=== PATIENT | male | born 1950 | race Caucasian/White ===

== ENCOUNTER 2021-03-18 08:43 | Outpatient (CLI) | payer MEDICARE, BC | END 2021-03-18 08:44 | disposition home or self-care (01) | LOC: MRI 08:43 | PROVIDERS: ATTEND Internal Medicine Endocrinology, Diabetes & Metabolism | DX: L89.899 Pressure ulcer of other site, unspecified stage (principal); Z86.31 Personal history of diabetic foot ulcer; E11.40 Type 2 diabetes mellitus with diabetic neuropathy, unspecified ==

== ENCOUNTER 2021-05-02 13:32 | Inpatient (IN) | payer BC, MEDICARE ==
[2021-05-02 14:42] LABS: Hemoglobin 18.5 g/dL (14.0-18.0); Mean Corpuscular HGB CONC 35.3 g/dL (32.0-36.0); Mean Corpuscular Hemoglobin 32.4 pg (27.0-31.0); Mean Corpuscular Volume 91.8 fL (78.0-98.0); Mean Platelet Volume 7.7 fL (7.4-10.4); Platelet Count 264 thou/uL (130-400); RBC Distribution Width 12.5 % (11.5-14.5); Red Blood Cell (RBC) Count 5.72 mill/uL (4.70-6.10); White Blood Cell (WBC) Count 19.3 thou/uL (4.8-10.8)
[2021-05-02 14:45] LABS: PTT 43.6 sec (22.9-36.1); Prothrombin Time 13.2 sec (12.0-14.7)
[2021-05-02 14:46] LABS: D-Dimer Test 0.5 *mcg/mL (0.27-0.43)
[2021-05-02 14:58] LABS: Band 1 % (5-11); Eosinophils 2 % (0-10); Lymphocytes 9 % (21-51); MDiff Complete? YES; Monocytes 5 % (0-10); Neutrophil 83 % (42-75); Platelet Morphology Comment Appears Adequate; RBC Morphology Normal
[2021-05-02 14:58] LABS: CRP (Inflammatory) 3.12 mg/dL (= or < 0.5)
[2021-05-02 15:10] LABS: ALT (SGPT) 29 U/L (8-55); AST (SGOT) 24 U/L (5-34); Albumin 3.7 g/dL (3.4-4.8); Alkaline Phosphatase 54 U/L (40-110); Anion Gap 23 mmol/L (10-20); BUN (Urea Nitrogen) 65 mg/dL (8.4-25.7); Bilirubin, Total 0.8 mg/dL (0.2-1.2); Calc. Creatinine Clearance 0 mL/min (70-130); Calcium 8.8 mg/dL (7.8-10.44); Carbon Dioxide 19 mmol/L (23-31); Chloride 91 mmol/L (98-107); Globulin 3.3 g/dL (2.4-3.5); Glucose 193 mg/dL (83-110); Potassium 5.8 mmol/L (3.5-5.1); Sodium 127 mmol/L (136-145)
[2021-05-02] MEDS ORDERED: cefTRIAXone\\ROCEPHIN 1 GM VIAL ONE (15:59)
[2021-05-02] MEDS ORDERED: Azithromycin 250 MG TAB ONE (15:59)
[2021-05-02] MEDS ORDERED: Benzonatate 100 MG CAP PO PRN (16:23)
[2021-05-02] MEDS ORDERED: Acetaminophen 650 MG Suppository PR PRN (16:23)
[2021-05-02] MEDS ORDERED: Albuterol 200 PUFF (6.7GM INHALER) INH PRN (16:23)
[2021-05-02] MEDS ORDERED: Acetaminophen 325 MG TAB PO PRN (16:23)
[2021-05-02] MEDS ORDERED: HumaLOG 300 UNITS/3 ML VIAL SC PRN (16:43)
[2021-05-02] MEDS ORDERED: Dextrose 50% Abboject 50 ML SYRINGE SLOW IVP PRN (16:43)
[2021-05-02] MEDS ORDERED: Dextrose 5% in Water 1,000 ML IV PRN (16:43)
[2021-05-02] MEDS ORDERED: Ascorbic Acid 500 mg Chewable Tablet PO SCH (17:45)
[2021-05-02 17:54] VITALS: BMI 29.4
[2021-05-02] MEDS ORDERED: Azithromycin 500 MG in Sodium Chloride 0.9% 250 ML 250 ML IVPB SCH (18:00)
[2021-05-02] MEDS ORDERED: Zinc Sulfate 220 MG CAP PO SCH (18:00)
[2021-05-02] MEDS ORDERED: Cholecalciferol (Vitamin D3) 400 UNITS TAB PO SCH (18:00)
[2021-05-02] MEDS: Mometasone 200 MCG/Formoterol 5 MCG 120 PUFF INHALER INH SCH (19:18)
[2021-05-02] MEDS ORDERED: Enoxaparin Sodium 40 MG/0.4 ML SYRINGE SC SCH (19:30)
[2021-05-02 19:33] LABS: Lactic Acid 1.4 mmol/L (0.5-2.2)
[2021-05-02] MEDS ORDERED: Sodium Chloride 0.9% 1,000 ML IV SCH (19:45)
[2021-05-02] MEDS ORDERED: cefTRIAXone\\ROCEPHIN 1 GM in Sodium Chloride 0.9% 100 ML IVPB SCH (20:00)
[2021-05-02] MEDS: Dexamethasone 10 MG/ML VIAL SLOW IVP SCH (20:18)
[2021-05-03 05:25] LABS: Hemoglobin A1c 6.5 % (4.0-6.0)
[2021-05-03 05:30] LABS: Hemoglobin 16.9 g/dL (14.0-18.0); Mean Corpuscular HGB CONC 33.2 g/dL (32.0-36.0); Mean Corpuscular Hemoglobin 30.8 pg (27.0-31.0); Mean Corpuscular Volume 92.9 fL (78.0-98.0); Mean Platelet Volume 7.2 fL (7.4-10.4); Platelet Count 227 thou/uL (130-400); RBC Distribution Width 12.4 % (11.5-14.5); Red Blood Cell (RBC) Count 5.49 mill/uL (4.70-6.10); White Blood Cell (WBC) Count 13.2 thou/uL (4.8-10.8)
[2021-05-03 05:46] LABS: Anion Gap 15 mmol/L (10-20); BUN (Urea Nitrogen) 42 mg/dL (8.4-25.7); CRP (Inflammatory) 4.28 mg/dL (= or < 0.5); Calc. Creatinine Clearance 123 mL/min (70-130); Calcium 8.9 mg/dL (7.8-10.44); Carbon Dioxide 22 mmol/L (23-31); Cardiac Risk 5.3 (Less than 4.5); Chloride 97 mmol/L (98-107); Cholesterol 169 mg/dl (< 200 Desired); Glucose 203 mg/dL (83-110); HDL Cholesterol 32 mg/dL (>60 Neg Risk); LDL Cholesterol, Calculated 87 mg/dL; Potassium 4.9 mmol/L (3.5-5.1); Sodium 129 mmol/L (136-145); Triglycerides 251 mg/dL (Less than 150)
[2021-05-03 06:15] LABS: Band 2 % (5-11); Lymphocytes 5 % (21-51); MDiff Complete? YES; Monocytes 1 % (0-10); Neutrophil 92 % (42-75)
[2021-05-03] MEDS: Mometasone 200 MCG/Formoterol 5 MCG 120 PUFF INHALER INH SCH ×2 (06:33→17:26)
[2021-05-03] MEDS: HumaLOG 300 UNITS/3 ML VIAL SC PRN ×3 (07:08→17:27)
[2021-05-03] MEDS: Enoxaparin Sodium 40 MG/0.4 ML SYRINGE SC SCH (10:00)
[2021-05-03] MEDS: Ascorbic Acid 500 mg Chewable Tablet PO SCH (10:01)
[2021-05-03] MEDS: Zinc Sulfate 220 MG CAP PO SCH (10:01)
[2021-05-03] MEDS: Cholecalciferol (Vitamin D3) 400 UNITS TAB PO SCH (10:01)
[2021-05-03] MEDS: Dexamethasone 10 MG/ML VIAL SLOW IVP SCH ×2 (10:02→20:33)
[2021-05-03] MEDS: Azithromycin 500 MG in Sodium Chloride 0.9% 250 ML 250 ML IVPB SCH (16:00)
[2021-05-03] MEDS: cefTRIAXone\\ROCEPHIN 1 GM in Sodium Chloride 0.9% 100 ML IVPB SCH (17:26)
[2021-05-03] MEDS: Melatonin 3 MG TAB PO PRN (20:33)
[2021-05-04 04:48] LABS: #Lymphocytes 0.4 thou/uL (1.20-3.40); #Monocytes 0.2 thou/uL (0.11-0.59); #Neutrophils 7.9 thou/uL (1.40-6.50); %Eosinophils 0.3 % (0.0-10.0); %Lymphocytes 4.3 % (21.0-51.0); %Monocytes 2.5 % (0.0-10.0); Hemoglobin 16.6 g/dL (14.0-18.0); Mean Corpuscular HGB CONC 33.1 g/dL (32.0-36.0); Mean Corpuscular Volume 93.5 fL (78.0-98.0); Mean Platelet Volume 7.6 fL (7.4-10.4); Platelet Count 242 thou/uL (130-400); RBC Distribution Width 12.3 % (11.5-14.5); Red Blood Cell (RBC) Count 5.37 mill/uL (4.70-6.10); White Blood Cell (WBC) Count 8.4 thou/uL (4.8-10.8)
[2021-05-04 05:09] LABS: Anion Gap 16 mmol/L (10-20); BUN (Urea Nitrogen) 38 mg/dL (8.4-25.7); CRP (Inflammatory) 2.95 mg/dL (= or < 0.5); Calc. Creatinine Clearance 114 mL/min (70-130); Calcium 8.8 mg/dL (7.8-10.44); Carbon Dioxide 21 mmol/L (23-31); Chloride 98 mmol/L (98-107); Glucose 239 mg/dL (83-110); Potassium 4.8 mmol/L (3.5-5.1); Sodium 130 mmol/L (136-145)
[2021-05-04] MEDS: Mometasone 200 MCG/Formoterol 5 MCG 120 PUFF INHALER INH SCH ×2 (06:16→18:22)
[2021-05-04] MEDS: HumaLOG 300 UNITS/3 ML VIAL SC PRN ×2 (06:16→16:55)
[2021-05-04] MEDS ORDERED: Benzonatate 100 MG CAP PO PRN (07:55)
[2021-05-04] MEDS: Aspirin Chewable 81 MG TAB PO SCH (10:12)
[2021-05-04] MEDS: metFORMIN 500 MG TAB PO SCH ×2 (10:12→22:11)
[2021-05-04] MEDS: Vit A,C & E/Lutein/Minerals Tablet PO SCH (10:12)
[2021-05-04] MEDS: Cholecalciferol (Vitamin D3) 400 UNITS TAB PO SCH (10:13)
[2021-05-04] MEDS: Lisinopril 20 MG TAB PO SCH (10:13)
[2021-05-04] MEDS: Zinc Sulfate 220 MG CAP PO SCH (10:13)
[2021-05-04] MEDS: Empagliflozin 25 MG TAB PO SCH (10:13)
[2021-05-04] MEDS: Tamsulosin HCl 0.4 MG CAP PO SCH (10:13)
[2021-05-04] MEDS: Ascorbic Acid 500 mg Chewable Tablet PO SCH (10:14)
[2021-05-04] MEDS: Dexamethasone 10 MG/ML VIAL SLOW IVP SCH ×2 (10:14→22:11)
[2021-05-04] MEDS: Enoxaparin Sodium 40 MG/0.4 ML SYRINGE SC SCH (10:14)
[2021-05-04] MEDS ORDERED: Cepastat Lozenges 1 LOZ PO PRN (11:11)
[2021-05-04] MEDS ORDERED: Ondansetron PF 4 MG/2 ML Vial IVP PRN (11:52)
[2021-05-04] MEDS: Azithromycin 500 MG in Sodium Chloride 0.9% 250 ML 250 ML IVPB SCH (16:55)
[2021-05-04] MEDS: cefTRIAXone\\ROCEPHIN 1 GM in Sodium Chloride 0.9% 100 ML IVPB SCH (18:23)
[2021-05-04] MEDS: Melatonin 3 MG TAB PO PRN (22:11)
[2021-05-04] MEDS: Simvastatin 10 MG TAB PO SCH (22:11)
[2021-05-04] MEDS: Benzocaine 20% Spray 60 ML CAN PO PRN (22:16)
[2021-05-05 05:33] LABS: #Lymphocytes 0.4 thou/uL (1.20-3.40); #Monocytes 0.3 thou/uL (0.11-0.59); #Neutrophils 7.2 thou/uL (1.40-6.50); %Eosinophils 0.4 % (0.0-10.0); %Lymphocytes 5.1 % (21.0-51.0); %Monocytes 3.4 % (0.0-10.0); %Neutrophils 91.2 % (42.0-75.0); Hemoglobin 15.5 g/dL (14.0-18.0); Mean Corpuscular HGB CONC 33.2 g/dL (32.0-36.0); Mean Corpuscular Hemoglobin 31.2 pg (27.0-31.0); Mean Corpuscular Volume 94.1 fL (78.0-98.0); Mean Platelet Volume 7.5 fL (7.4-10.4); Platelet Count 249 thou/uL (130-400); RBC Distribution Width 12.3 % (11.5-14.5); Red Blood Cell (RBC) Count 4.97 mill/uL (4.70-6.10); White Blood Cell (WBC) Count 7.9 thou/uL (4.8-10.8)
[2021-05-05 06:08] LABS: Anion Gap 14 mmol/L (10-20); BUN (Urea Nitrogen) 40 mg/dL (8.4-25.7); CRP (Inflammatory) 1.19 mg/dL (= or < 0.5); Calc. Creatinine Clearance 128 mL/min (70-130); Calcium 8.9 mg/dL (7.8-10.44); Carbon Dioxide 22 mmol/L (23-31); Chloride 98 mmol/L (98-107); Glucose 209 mg/dL (83-110); Potassium 4.7 mmol/L (3.5-5.1); Sodium 129 mmol/L (136-145)
[2021-05-05] MEDS: HumaLOG 300 UNITS/3 ML VIAL SC PRN ×3 (06:27→18:35)
[2021-05-05] MEDS: Mometasone 200 MCG/Formoterol 5 MCG 120 PUFF INHALER INH SCH ×2 (06:27→17:18)
[2021-05-05] MEDS: Benzocaine 20% Spray 60 ML CAN PO PRN ×2 (06:28→16:03)
[2021-05-05] MEDS ORDERED: FLU VACC QS2021-22(65YR UP)/PF 240 MCG/0.7 ML SYRINGE IM ONE (09:00)
[2021-05-05] MEDS: Aspirin Chewable 81 MG TAB PO SCH (09:04)
[2021-05-05] MEDS: Ascorbic Acid 500 mg Chewable Tablet PO SCH (09:04)
[2021-05-05] MEDS: Zinc Sulfate 220 MG CAP PO SCH (09:05)
[2021-05-05] MEDS: Tamsulosin HCl 0.4 MG CAP PO SCH (09:05)
[2021-05-05] MEDS: Lisinopril 20 MG TAB PO SCH (09:05)
[2021-05-05] MEDS: Cholecalciferol (Vitamin D3) 400 UNITS TAB PO SCH (09:05)
[2021-05-05] MEDS: Dexamethasone 10 MG/ML VIAL SLOW IVP SCH ×2 (09:05→20:39)
[2021-05-05] MEDS: Empagliflozin 25 MG TAB PO SCH (09:05)
[2021-05-05] MEDS: metFORMIN 500 MG TAB PO SCH ×2 (09:06→20:38)
[2021-05-05] MEDS: Vit A,C & E/Lutein/Minerals Tablet PO SCH (09:06)
[2021-05-05] MEDS: Enoxaparin Sodium 40 MG/0.4 ML SYRINGE SC SCH (09:06)
[2021-05-05] MEDS: Azithromycin 500 MG in Sodium Chloride 0.9% 250 ML 250 ML IVPB SCH (16:03)
[2021-05-05] MEDS: cefTRIAXone\\ROCEPHIN 1 GM in Sodium Chloride 0.9% 100 ML IVPB SCH (17:17)
[2021-05-05] MEDS: Melatonin 3 MG TAB PO PRN (20:39)
[2021-05-05] MEDS: Simvastatin 10 MG TAB PO SCH (20:39)
[2021-05-06] MEDS: Mometasone 200 MCG/Formoterol 5 MCG 120 PUFF INHALER INH SCH ×2 (05:26→19:10)
[2021-05-06] MEDS: HumaLOG 300 UNITS/3 ML VIAL SC PRN ×3 (05:27→17:37)
[2021-05-06] MEDS: Vit A,C & E/Lutein/Minerals Tablet PO SCH (08:02)
[2021-05-06] MEDS: Aspirin Chewable 81 MG TAB PO SCH (08:02)
[2021-05-06] MEDS: Ascorbic Acid 500 mg Chewable Tablet PO SCH (08:02)
[2021-05-06] MEDS: Dexamethasone 10 MG/ML VIAL SLOW IVP SCH ×2 (08:02→19:11)
[2021-05-06] MEDS: Cholecalciferol (Vitamin D3) 400 UNITS TAB PO SCH (08:03)
[2021-05-06] MEDS: Tamsulosin HCl 0.4 MG CAP PO SCH (08:03)
[2021-05-06] MEDS: metFORMIN 500 MG TAB PO SCH ×2 (08:03→19:51)
[2021-05-06] MEDS: Zinc Sulfate 220 MG CAP PO SCH (08:03)
[2021-05-06] MEDS: Lisinopril 20 MG TAB PO SCH (08:03)
[2021-05-06] MEDS: Empagliflozin 25 MG TAB PO SCH (08:04)
[2021-05-06] MEDS: Enoxaparin Sodium 40 MG/0.4 ML SYRINGE SC SCH (08:04)
[2021-05-06] MEDS: cefTRIAXone\\ROCEPHIN 1 GM in Sodium Chloride 0.9% 100 ML IVPB SCH (17:36)
[2021-05-06] MEDS: Azithromycin 500 MG in Sodium Chloride 0.9% 250 ML 250 ML IVPB SCH (19:13)
[2021-05-06] MEDS: Cefdinir 300 MG CAP PO SCH (19:52)
[2021-05-06] MEDS: Simvastatin 10 MG TAB PO SCH (19:52)
[2021-05-06] MEDS: Melatonin 3 MG TAB PO PRN (19:54)
[2021-05-07] MEDS: Mometasone 200 MCG/Formoterol 5 MCG 120 PUFF INHALER INH SCH (06:18)
[2021-05-07] MEDS ORDERED: Dexamethasone 4 MG TAB PO SCH (08:00)
[2021-05-07 08:02] VITALS: TEMP 97.7
[2021-05-07] MEDS: Vit A,C & E/Lutein/Minerals Tablet PO SCH (08:04)
[2021-05-07] MEDS: Zinc Sulfate 220 MG CAP PO SCH (08:04)
[2021-05-07] MEDS: Ascorbic Acid 500 mg Chewable Tablet PO SCH (08:04)
[2021-05-07] MEDS: Enoxaparin Sodium 40 MG/0.4 ML SYRINGE SC SCH (08:04)
[2021-05-07] MEDS: metFORMIN 500 MG TAB PO SCH (08:04)
[2021-05-07] MEDS: Cholecalciferol (Vitamin D3) 400 UNITS TAB PO SCH (08:04)
[2021-05-07] MEDS: Lisinopril 20 MG TAB PO SCH (08:04)
[2021-05-07] MEDS: Empagliflozin 25 MG TAB PO SCH (08:04)
[2021-05-07] MEDS: Cefdinir 300 MG CAP PO SCH (08:04)
[2021-05-07] MEDS: Aspirin Chewable 81 MG TAB PO SCH (08:05)
[2021-05-07] MEDS: Tamsulosin HCl 0.4 MG CAP PO SCH (08:05)
[2021-05-07] MEDS: Dexamethasone 10 MG/ML VIAL SLOW IVP SCH (08:13)
[2021-05-07 12:26] VITALS: BP 116/61
== END 2021-05-07 14:09 | disposition home health service (06) | DRG 177 ==
LOC: ERS 13:32 → 2SW 16:23
PROVIDERS: ADMIT Internal Medicine; ATTEND Internal Medicine
PROC: 8E0ZXY6 Isolation (ICD-10-PCS; principal; 2021-05-02)
PROC: 3E03329 Introduction of Other Anti-infective into Peripheral Vein, Percutaneous Approach (ICD-10-PCS; 2021-05-02)
PROC: 0HBNXZZ Excision of Left Foot Skin, External Approach (ICD-10-PCS; 2021-05-06)
DX: U07.1 COVID-19 (principal); J12.82 Pneumonia due to coronavirus disease 2019; J96.01 Acute respiratory failure with hypoxia; E43 Unspecified severe protein-calorie malnutrition; E87.1 Hypo-osmolality and hyponatremia; N17.9 Acute kidney failure, unspecified; I10 Essential (primary) hypertension; E78.5 Hyperlipidemia, unspecified; E78.00 Pure hypercholesterolemia, unspecified; G47.00 Insomnia, unspecified; E11.40 Type 2 diabetes mellitus with diabetic neuropathy, unspecified; E11.621 Type 2 diabetes mellitus with foot ulcer; L97.529 Non-pressure chronic ulcer of other part of left foot with unspecified severity; E87.5 Hyperkalemia; Z79.82 Long term (current) use of aspirin; Z79.84 Long term (current) use of oral hypoglycemic drugs; Z79.899 Other long term (current) drug therapy; Z68.29 Body mass index [BMI] 29.0-29.9, adult; Z87.891 Personal history of nicotine dependence
CPT/HCPCS: 36415; 36416; 71045; 80048; 80053; 80061; 82550; 83036; 83605; 83880; 84145; 84484; 85025; 85379; 85610; 85730; 86140; 87040; 87070; 87205; 93005; 94760; 96365; J0456; J0696; J1100; J1650; J1815; J3490; J7050; J8540